=== PATIENT | female | born 1970 | race African-American/Black ===

== ENCOUNTER 2017-08-05 08:37 | Emergency (ER) | payer SELFPAY ==
[~2017-08-05] VITALS: Ht 172.7 cm; Wt 86.2 kg
[2017-08-05 08:40] VITALS: BP 130/88
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
[2017-08-05] MEDS ORDERED: LIDODERM700 M1 TOPIC (09:50)
[2017-08-05] MEDS ORDERED: IBUPROFEN800 MG ORAL (09:50)
[2017-08-05] MEDS ORDERED: CYCLOBENZAPRINE10 MG ORAL (09:50)
[2017-08-05 09:52] VITALS: BP 128/82
== END 2017-08-05 10:55 | disposition home or self-care (01) ==
LOC: EDBD 08:37 → EMR 10:08
DX: S13.4XXA Sprain of ligaments of cervical spine, initial encounter (principal); V43.52XA Car driver injured in collision with other type car in traffic accident, initial encounter; Y92.410 Unspecified street and highway as the place of occurrence of the external cause; I10 Essential (primary) hypertension; J45.909 Unspecified asthma, uncomplicated
CPT/HCPCS: 99282